=== PATIENT | male | born 1945 | race Caucasian/White ===

== ENCOUNTER 2016-12-07 14:19 | Observation (INO) | payer MEDICARE, OTHER ==
[2016-12-07] MEDS ORDERED: Aspirin Low Dose CHEW TAB* 81 MG PO ONE (17:07)
[2016-12-07 17:35] LABS: Hematocrit 36 % (42-52); Hemoglobin 12.4 g/dl (14.0-18.0); Mean Corpuscular HGB Conc 35 g/dl (31-36); Mean Corpuscular Hemoglobin 32 pg (27-31); Mean Corpuscular Volume 91 fL (80-94); Mean Platelet Volume 9 um3 (7.4-10.4); Red Blood Count 3.94 10^6/ul (4.0-5.4); Red Cell Distribution Width 13 % (10.5-15); White Blood Count 11.5 10^3/ul (3.5-10.8)
[2016-12-07 17:50] LABS: Albumin 3.8 g/dL (3.2-5.2); BUN/Creatinine Ratio 14.6 (8-20); Calcium 8.8 mg/dL (8.6-10.3); EGFR African American 48.6 (>60); EGFR Non-African American 37.8 (>60); Globulin 3.2 g/dL (2-4); Potassium 4.4 mmol/L (3.5-5.0); Total Bilirubin 0.3 mg/dL (0.2-1.0)
--- NOTE | 2016-12-07 18:03 | RAD ---
Indication: Chest pain. Comparison: October 19, 2015 Technique: Upright AP 1715 hours Report: No pulmonary infiltrate, focal pulmonary lesion, pleural effusion, pneumothorax. Upper normal heart size accounting for portable AP technique. Unremarkable central pulmonary vasculature. Mildly tortuous thoracic aorta without change. Prosthetic RIGHT glenohumeral joint. IMPRESSION: No evidence for acute intrathoracic disease.
[2016-12-07 18:28] LABS: TSH (Thyroid Stimulating Horm) 3.42 mcIU/mL (0.34-5.60)
[2016-12-07] MEDS ORDERED: Nitroglycerin TAB 0.4 MG* 0.4 MG TAB SL PRN (19:05)
[2016-12-07] MEDS ORDERED: HYDROcodone/ACETAMIN 5-325 MG* 1 TAB PO PRN (19:05)
[2016-12-07] MEDS ORDERED: Dextrose 50% Syringe 50 ML* 25 GM/50 ML SYRINGE IV PUSH PRN (19:09)
--- NOTE | 2016-12-07 19:22 | ADMNOTE ---
Subjective Date of Service: 12/07/16 Interval History: ADMISSION HISTORY AND PHYSICAL EXAM: Ambulatory Orders Medication Instructions Recorded Atorvastatin* [Lipitor*] 10 mg PO BEDTIME 12/17/12 Enalapril TAB* [Vasotec TAB*] 40 mg PO DAILY 02/27/14 Cyanocobalamin TAB* [Vitamin B12 1,000 mcg PO DAILY 10/19/15 TAB*] Fenofibrate(NF) [Tricor(NF)] 145 mg PO BEDTIME 10/19/15 Furosemide TAB* [Lasix TAB*] 20 mg PO DAILY 10/19/15 Gabapentin CAP(*) [Neurontin 300 600 mg PO TID 10/19/15 CAP(*)] HYDROcodone/ACETAMIN 5-325 MG* 1 tab PO Q6H PRN 10/19/15 [[place] 5-325 TAB*] Hydrocortisone 1% CREAM* [Hytone 1 applic TOPICAL BID 10/19/15 Cream 1%*] Insulin Lispro [Humalog] 10 - 25 unit SUBCUT AC MDD 90 units 10/19/15 Insulin Regular (Human) [Humulin R 30 units SUBCUT BID MDD 60 units 10/19/15 U-500 (Concentrated)] amLODIPine TAB* [Norvasc TAB*] 10 mg PO DAILY 10/19/15 Aspirin EC Low Dose* [Ecotrin EC 81 mg PO DAILY 12/07/16 Low Dose 81 MG*] Cholecalciferol [Vitamin D] 1,000 unit PO DAILY 12/07/16 Nitroglycerin TAB 0.4 MG* 0.4 mg SL Q5M PRN 12/07/16 [place]-3 Fatty Acids (Nf) [Fish Oil 1,000 mg PO DAILY 12/07/16 (NF)] Pantoprazole TAB (NF) [Protonix 40 mg PO DAILY 12/07/16 TAB (NF)] Solifenacin(NF) [Vesicare(NF)] 10 mg PO DAILY 12/07/16 Tamsulosin CAP* [Flomax CAP*] 0.4 mg PO DAILY 12/07/16 Triamcinolone 0.1% CREAM (NF) 1 applic TOPICAL BID 12/07/16 [Kenalog 0.1% Cream (NF)] metFORMIN* [Glucophage 1000 MG TAB 1,000 mg PO BID 12/07/16 *] Allergies Allergy/AdvReac Type Severity Reaction Status Date / Time Adhesive Tape Allergy Unknown Blisters Verified 12/07/16 14:21 Latex Allergy Blisters Verified 12/07/16 14:21 Citalopram [From Celexa] AdvReac Severe See Comment Verified 12/07/16 14:21 Azithromycin AdvReac Intermediate Itching Verified 12/07/16 14:21 HPI: The patient developed chest pain at rest yesterday. It was relieved by 1 SL NTG. It burned under his tongue. This was the first time he ever used NTG. He called Dr. Baez's office and the nurse advised him to go to the ED. He decided he would go if he got chest pain again. Today about 1 PM he got chest pain. He did not take a NTG but had his drive him to the ED. The pain gradually subsided. It is still present but at a much lower level. It was midsternal, no associated sx's. Family History: Findings - Many relatives with DM Social History: Findings - Lives with his who is his SDM. 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 Smoke in [employer]. No alcohol abuse. Past Medical History: Findings - DM with neuropathy, [place], SHELBI, GERD, CKD, back pain, HTN, HL. Nita, appy, tonsil, umbilical hernia repair. Review of Systems - Review of Systems Constitutional Symptoms: Negative: Weight Gain, Weight Loss, Weakness, Fatigue, Fever, Night Sweats, Unexplained Falls, Other Dermatology: Positive: Normal HEENT: Positive: Normal Eyes: Positive: Normal Thyroid: Positive: Normal Pulmonary: Positive: Other - sleep apnea. uses CPAP always when sleeping or napping Cardiology: Positive: Chest Pain Gastroenterology: Positive: Normal Genital - Urinary: Positive: Normal Musculoskeletal: Positive: Low Back Pain Endocrinology: Positive: Obesity, Diabetes Mellitus Hematologic/Lymphatic: Negative: Anemia, Easy Brusing, Hx Leukemia, Hx Lymphoma, Use of Anticoagulant, Use of Antiplatelet Drugs, Other Neurology: Positive: Numbness\Paresthesiae Psychiatry: Positive: Normal Allergic/Immunologic: Negative: Hx Anaphylaxis, Hx Angioedema, Hx Environmental, Hx Seasonal, Athsma, Hx HIV, Immunocompromise, Swollen Glands LymphNodes, Other Objective Active Medications: Hydrocodone Bitart/Acetaminophen ([place] 5-325 Tab*) 1 tab PO Q6H PRN PRN Reason: PAIN Amlodipine Besylate (Norvasc Tab*) 10 mg PO DAILY [facility] Aspirin (Aspirin Ec Low Dose*) 81 mg PO DAILY [facility] Atorvastatin Calcium (Lipitor*) 80 mg PO 2100 [facility] Cholecalciferol (Vitamin D Tab*) 1,000 units PO DAILY [facility] Cyanocobalamin (Vitamin B12 Tab*) 1,000 mcg PO DAILY [facility] Dextrose (D50w Syringe 50 Ml*) 12.5 gm IV PUSH .FOR FS < 60 - SS PRN PRN Reason: FS < 60 Enalapril Maleate (Vasotec Tab*) 40 mg PO DAILY [facility] Gabapentin (Neurontin Cap(*)) 600 mg PO TID [facility] Heparin Sodium (Porcine) (Heparin Vial(*)) 5,000 units SUBCUT Q8HR [facility] Hydrocortisone (Hytone Cream 1%*) 1 applic TOPICAL BID [facility] Insulin Glargine (Lantus(*)) 25 units SUBCUT Q24H [facility] Insulin Human Lispro (Humalog*) 0 units SUBCUT ACHS [facility] PRN Reason: Protocol Nitroglycerin (Nitroglycerin Tab 0.4 Mg*) 0.4 mg SL Q5M PRN PRN Reason: PAIN - CHEST Pantoprazole Sodium (Protonix Tab (Nf)) 40 mg PO DAILY [facility] Solifenacin (Vesicare(Nf)) 10 mg PO DAILY [facility] Tamsulosin HCl (Flomax Cap*) 0.4 mg PO DAILY [facility] Triamcinolone Acetonide (Kenalog 0.1% Cream (Nf)) 1 applic TOPICAL BID [facility] Vital Signs 12/07/16 12/07/16 12/07/16 14:22 16:44 16:46 Temperature 98.2 F Pulse Rate 93 80 Respiratory 20 Rate Blood Pressure 107/92 121/58 (mmHg) O2 Sat by Pulse 96 95 Oximetry 12/07/16 12/07/16 12/07/16 17:00 17:09 17:30 Temperature Pulse Rate 80 82 Respiratory Rate Blood Pressure 121/62 126/62 (mmHg) O2 Sat by Pulse 95 95 95 Oximetry 12/07/16 12/07/16 12/07/16 18:00 18:01 18:30 Temperature Pulse Rate 81 84 81 Respiratory 20 20 Rate Blood Pressure 115/85 (mmHg) O2 Sat by Pulse 95 94 94 Oximetry Oxygen Devices in Use Now: Nasal Cannula Appearance: Alert, supine on ED stretcher. In good spirits. Looks comfortable but c/o stretcher making his back worse. Eyes: No Scleral Icterus Ears/Nose/Mouth/Throat: Clear Oropharnyx, Mucous Membranes Moist Neck: NL Appearance and Movements; NL JVP, No Thyroid Enlargement, Masses Respiratory: Symmetrical Chest Expansion and Respiratory Effort, Clear to Auscultation, Clear to Percussion Cardiovascular: NL Sounds; No Murmurs; No JVD, RRR, No Edema, - Abdominal: NL Sounds; No Tenderness; No Distention, No Hepatosplenomegaly, - - massively obese Extremities: No Edema, No Clubbing, Cyanosis, - Skin: No Rash or Ulcers, No Nodules or Sclerosis, - Neurological: Alert and Oriented x 3, NL Sensation Result Diagrams: 12/07/16 17:23 12/07/16 17:23 Assess/Plan/Problems-Billing Assessment: - Patient Problems (1) Chest pain of uncertain etiology Current Visit: No Status: Acute Priority: High Code(s): R07.89 - OTHER CHEST PAIN SNOMED Code(s): 95424132 Comment: Chemical stress test. Second troponin. PRN NTG. Increase atorvastatin to 80 mg daily. Consider BB if discharge dx angina. (2) Sleep apnea Current Visit: No Status: Chronic Priority: Low Code(s): G47.30 - SLEEP APNEA, UNSPECIFIED SNOMED Code(s): 06576113 Comment: to bring in his CPAP. He always uses it while sleeping or napping. 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 Lispro by SS. (4) GERD (gastroesophageal reflux disease) Current Visit: No Status: Chronic Priority: Low Code(s): K21.9 - GASTRO- ESOPHAGEAL REFLUX DISEASE WITHOUT ESOPHAGITIS SNOMED Code(s): 991978920 Comment: Continue PPI. (5) Morbid obesity with body mass index of 40.0-44.9 in adult Current Visit: No Status: Chronic Priority: Low Code(s): E66.01 - MORBID ( SEVERE) OBESITY DUE TO EXCESS CALORIES; Z68.41 - BODY MASS INDEX (BMI) 40.0-44.9 , ADULT SNOMED Code(s): 913928389 Comment: BMI today not yet recorded.
[2016-12-07] MEDS: Insulin GLARGINE(*) 1 UNITS UNIT SUBCUT SCH (22:09)
[2016-12-07] MEDS: Gabapentin CAP(*) 300 MG PO SCH (22:11)
[2016-12-07] MEDS: Atorvastatin* 80 MG TAB PO SCH (22:11)
[2016-12-07] MEDS: Hydrocortisone 1% CREAM* 30 GM TUBE TOPICAL SCH (22:15)
[2016-12-07] MEDS: Heparin VIAL(*) 5000 UNITS/ML VIAL (FIVE THOUSAND) SUBCUT SCH (22:15)
[2016-12-07] MEDS: Triamcinolone 0.025% OINT * 15 GM TUBE TOPICAL SCH (22:15)
[2016-12-07] MEDS: Insulin LISPRO* 1 UNITS UNIT SUBCUT SCH (22:34)
[2016-12-08] MEDS: Heparin VIAL(*) 5000 UNITS/ML VIAL (FIVE THOUSAND) SUBCUT SCH ×3 (05:37→20:39)
[2016-12-08] MEDS ORDERED: Lidocaine 1%* 5 ML VIAL INJ ONE (08:41)
--- NOTE | 2016-12-08 08:42 | PN ---
Subjective - Subjective Reason for Note: Progress Note History: I have reviewed Hamilton Gibbs's presentation with the patient and his and also with Dr. Arjun Brannon's admitting history and physical. He has a 2 day history of 2/10 chest pressure. There is no radiation, diaphoresis, nausea, vomiting, pre-syncope, palpitations, dyspnea. There are no relieving or exacerbating factors. In particular, mylanta didn't relieve this discomfort. He continues to have this symptom today. His states he has been complaining of non specific malaise for 1 - 2 weeks. His glycemic control is not worsened from baseline. Active Problems: Active Problems Chest pain of uncertain etiology (Acute) R07.89 Chemical stress test. Second troponin. PRN NTG. Increase atorvastatin to 80 mg daily. Consider BB if discharge dx angina. Essential (primary) hypertension (Chronic) I10 GERD (gastroesophageal reflux disease) (Chronic) K21.9 Continue PPI. Hyperlipidemia (Chronic) E78.5 Morbid obesity with body mass index of 40.0-44.9 in adult (Chronic) E66.01, Z68.41 BMI today not yet recorded. Sleep apnea (Chronic) G47.30 to bring in his CPAP. He always uses it while sleeping or napping. 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 Lispro by SS. Current Medications: Current Medications Hydrocodone Bitart/Acetaminophen ([place] 5-325 Tab*) 1 tab PO Q6H PRN PRN Reason: PAIN Amlodipine Besylate (Norvasc Tab*) 10 mg PO DAILY [facility] Aspirin (Aspirin Ec Low Dose*) 81 mg PO DAILY [facility] Atorvastatin Calcium (Lipitor*) 80 mg PO 2100 [facility] Last Admin: 12/07/16 22:11 Dose: 80 mg Cholecalciferol (Vitamin D Tab*) 1,000 units PO DAILY [facility] Cyanocobalamin (Vitamin B12 Tab*) 1,000 mcg PO DAILY [facility] Dextrose (D50w Syringe 50 Ml*) 12.5 gm IV PUSH .FOR FS < 60 - SS PRN PRN Reason: FS < 60 Enalapril Maleate (Vasotec Tab*) 40 mg PO DAILY [facility] Gabapentin (Neurontin Cap(*)) 600 mg PO TID [facility] Last Admin: 12/07/16 22:11 Dose: 600 mg Heparin Sodium (Porcine) (Heparin Vial(*)) 5,000 units SUBCUT Q8HR [facility] Last Admin: 12/08/16 05:37 Dose: 5,000 units Hydrocortisone (Hytone Cream 1%*) 1 applic TOPICAL BID [facility] Last Admin: 12/07/16 22:15 Dose: Not Given Insulin Glargine (Lantus(*)) 25 units SUBCUT Q24H [facility] Last Admin: 12/07/16 22:09 Dose: 25 units Insulin Human Lispro (Humalog*) 0 units SUBCUT ACHS [facility] PRN Reason: Protocol Last Admin: 12/07/16 22:34 Dose: 6 units Nitroglycerin (Nitroglycerin Tab 0.4 Mg*) 0.4 mg SL Q5M PRN PRN Reason: PAIN - CHEST Pantoprazole Sodium (Protonix Tab (Nf)) 40 mg PO DAILY@0730 [facility] Solifenacin (Vesicare(Nf)) 10 mg PO DAILY [facility] Tamsulosin HCl (Flomax Cap*) 0.4 mg PO DAILY [facility] Triamcinolone Acetonide (Triamcinolone 0.025% Oint *) 1 applic TOPICAL BID [facility] Last Admin: 12/07/16 22:15 Dose: Not Given - Review of Systems Constitutional Symptoms: Yes: Fatigue, No: Fever, Night Sweats Pulmonary: Negative: Cough, Hemoptysis, Respiratory Distress, Shortness of Breath Cardiology: Positive: Chest Pain, Swelling of Ankles Negative: Shortness of Breath, Palpitations Gastroenterology: Negative: Abdominal Pain, Nausea, Vomiting, Change in Bowel Habits Genital - Urinary: Negative: Dysuria, Hematuria, Polyuria Home Medications: Home Medications Medication Instructions Recorded Confirmed Type Atorvastatin* [Lipitor*] 10 mg PO BEDTIME 12/17/12 12/07/16 History Enalapril TAB* [Vasotec TAB*] 40 mg PO DAILY 02/27/14 12/07/16 History Cyanocobalamin TAB* [Vitamin B12 1,000 mcg PO DAILY 10/19/15 12/07/16 History TAB*] Fenofibrate(NF) [Tricor(NF)] 145 mg PO BEDTIME 10/19/15 12/07/16 History Furosemide TAB* [Lasix TAB*] 20 mg PO DAILY 10/19/15 12/07/16 History Gabapentin CAP(*) [Neurontin 300 600 mg PO TID 10/19/15 12/07/16 History CAP(*)] HYDROcodone/ACETAMIN 5-325 MG* 1 tab PO Q6H PRN 10/19/15 12/07/16 History [[place] 5-325 TAB*] Hydrocortisone 1% CREAM* [Hytone 1 applic TOPICAL BID 10/19/15 12/07/16 History Cream 1%*] Insulin Lispro [Humalog] 10 - 25 unit SUBCUT AC MDD 90 units 10/19/15 12/07/16 History Insulin Regular (Human) [Humulin R 30 units SUBCUT BID MDD 60 units 10/19/1501/13 History U-500 (Concentrated)] amLODIPine TAB* [Norvasc TAB*] 10 mg PO DAILY 10/19/15 12/07/16 History Aspirin EC Low Dose* [Ecotrin EC 81 mg PO DAILY 12/07/16 12/07/16 History Low Dose 81 MG*] Cholecalciferol [Vitamin D] 1,000 unit PO DAILY 12/07/16 12/07/16 History Nitroglycerin TAB 0.4 MG* 0.4 mg SL Q5M PRN 12/07/16 12/07/16 History [place]-3 Fatty Acids (Nf) [Fish Oil 1,000 mg PO DAILY 12/07/16 12/07/16 History (NF)] Pantoprazole TAB (NF) [Protonix 40 mg PO DAILY 12/07/16 12/07/16 History TAB (NF)] Solifenacin(NF) [Vesicare(NF)] 10 mg PO DAILY 12/07/16 12/07/16 History Tamsulosin CAP* [Flomax CAP*] 0.4 mg PO DAILY 12/07/16 12/07/16 History Triamcinolone 0.1% CREAM (NF) 1 applic TOPICAL BID 12/07/16 12/07/16 History [Kenalog 0.1% Cream (NF)] metFORMIN* [Glucophage 1000 MG TAB 1,000 mg PO BID 12/07/16 12/07/16 History *] Allergies: Allergies Allergy/AdvReac Type Severity Reaction Status Date / Time Adhesive Tape Allergy Unknown Blisters Verified 12/07/16 14:21 Latex Allergy Blisters Verified 12/07/16 14:21 Citalopram [From Celexa] AdvReac Severe See Comment Verified 12/07/16 14:21 Azithromycin AdvReac Intermediate Itching Verified 12/07/16 14:21 Objective - Vital Signs Vital Signs: Vital Signs 12/07/16 12/07/16 12/07/16 19:30 21:00 23:41 Temperature 97.7 F 98.1 F Pulse Rate 80 82 86 Respiratory 19 18 20 Rate Blood Pressure 136/55 162/72 151/70 (mmHg) O2 Sat by Pulse 95 98 99 Oximetry 12/08/16 03:31 Temperature 98.1 F Pulse Rate 80 Respiratory 18 Rate Blood Pressure 145/74 (mmHg) O2 Sat by Pulse 96 Oximetry - Intake and Output Intake and Output: Intake & Output 12/05/16 12/06/16 12/07/16 12/08/16 11:59 11:59 11:59 11:59 Intake Total 0 Balance 0 Weight 302 lb 3.2 oz Intake: Oral 0 ADLs: Meal Record Start: 12/07/16 21: 00 Freq: DAILY@0900,1400,1800 Status: Active Created 12/07/16 21:00 System (Rec: 12/07/16 21:00 System [email or web address]) Intake and Output Start: 12/07/16 14: 20 Freq: Status: Active Created 12/07/16 14:20 System (Rec: 12/07/16 14:20 System [id number]) Intake and Output Start: 12/07/16 21: 00 Freq: DAILY@0600,1400,2200 Status: Active Created 12/07/16 21:00 System (Rec: 12/07/16 21:00 System [email or web address]) Document 12/07/16 22:00 [id number] (Rec: 12/07/16 23:22 [id number] [email or web address]) Document 12/08/16 05:31 [id number] (Rec: 12/08/16 05:32 [id number]) - Physical Exam General Physical Exam Comment: Sitting in a chair, warm and well perfused, no acute distress, he is hemodynamically stable General: No Cyanosis, No Anemia, No Jaundice, No Clubbing Eye Exam: bilateral: EOMI Skin: Normal: Rash Endocrine: Yes Central Obesity, No Acromegaly, No Vitiligo, No Flushing, No Acanthosis nigricans, No Clifford Syndrome Lungs and Chest: Yes: Chest Expansion Full, Chest Expansion Symetrica, Percussion Note Resonant, Vessicular Breath Sounds. No: Crackles, Wheezes Heart Rate and Rhythm: Regular JVP: Not Elevated Additional Cardiovascular: Yes: Normal Heart Sounds, Pedal Edema. No: Heart Murmur Abdominal Exam: Yes: Soft, Bowel Sounds Present. No: Distention, Abdominal Mass , Abdominal Tenderness - Extremities Cranial Nerves II-XII Intact: Yes Limbs: Normal Power, Normal Tone - Neuro Orientation: A/O x3 Psychiatric: Normal Speech: Normal Results - Results Lab Results: Laboratory Results - last 24 hr 12/07/16 12/07/16 12/07/16 20:24 22:29 23:47 POC Glucose (mg/dL) 224 H Troponin I 0.00 0.00 12/08/16 07:49 POC Glucose (mg/dL) 193 H Troponin I Radiology Results: Patient Name: HAMILTON GIBBS Medical Record#: [id number] Ordering Physician: Ishaan Mohamud MD Acct.#: [id number] : 1945 Age: 71 Sex: M Location: EMERGENCY DEPARTMENT Exam Date: 12/07/161706 ADM Status: REG ER Order Information: CHEST AP PORTABLE Accession Number: [id number] CPT: 54584 Indication: Chest pain. Comparison: October 19, 2015 Technique: Upright AP 1715 hours Report: No pulmonary infiltrate, focal pulmonary lesion, pleural effusion, pneumothorax. Upper normal heart size accounting for portable AP technique. Unremarkable central pulmonary vasculature. Mildly tortuous thoracic aorta without change. Prosthetic RIGHT glenohumeral joint. IMPRESSION: No evidence for acute intrathoracic disease. <Electronically signed by Ishaan Chinchilla MD in OV> 12/07/16 1800 Dictated By: Ishaan Chinchilla MD Dictated Date/Time: 12/07/16 1800 Transcribed Date/Time: 12/07/16 4673 Copy to: CC:Earle Lutz MD; Ishaan Mohamdu MD Imaging - [facility] Imaging - [facility] Imaging - [facility] [address] [facility] [place], [place] [id number] [place] [id number] [place] [id number] ph [phone]) ph ([phone]) ph ([phone]) 1 of 1 EKG Report: EKG - 12/07/2016 17:11 SR 77 VA 179 QRS95 QRS axis 15 - normal sinus rhythm Telemetry - NSR Assessment - Problem List Assessment: Patient Problems Chest pain of uncertain etiology (Acute) Essential (primary) hypertension (Chronic) GERD (gastroesophageal reflux disease) (Chronic) Hyperlipidemia (Chronic) Morbid obesity with body mass index of 40.0-44.9 in adult (Chronic) Sleep apnea (Chronic) Type II diabetes mellitus with nephropathy (Chronic) Plan: Chest pain of uncertain etiology (Acute) He presents with atypical chest pain that is mild. He has a negative troponin I series making CAD unlikely. His BNP is normal making CHF unlikely. He has a history of GERD that is the best explanation. Since he has multiple risk factors for CAD (obesity, T2D, HTN, Dyslipidemia, sedentary lifestyle), we will stratify his cardiac risk with a 2 day NM chemical stress test and manage him according to the outcome. Here is the report from his 06/09/14 cardiac cath: Cardiac Catheterization Report LEFT VENTRICULOGRAM: The left ventricle was normal in size and systolic function. Estimated ejection fraction 65%. There were no focal wall motion abnormalities. There was no mitral regurgitation. Aortic valve was normal and ascending aorta was mildly dilated at 3.8 cm. CORONARY ARTERIES: 1. Left main. The left main was normal in size. It bifurcated into the LAD and circumflex. There was no evidence of stenosis. 2. Left anterior descending artery. The LAD was normal in size. It gave off 2 diagonal vessels. There was mild calcification of the proximal LAD. There was no significant stenosis in the proximal and mid LAD. The distal LAD had a 40% stenosis. There is no stenosis in the diagonal vessel. 3. Left circumflex artery. Left circumflex artery was normal in size. It gave off 1 large branching obtuse marginal. There was no evidence of stenosis. There was mild calcification of the proximal vessel. 4. Right coronary artery. The RCA was normal in size. It was a dominant vessel, it gave off the PDA. There was no evidence of stenosis. IMPRESSION: 1. Normal LV size and systolic function. 2. Mild calcification of the proximal LAD and left circumflex artery. 3. 40% stenosis to the distal LAD. 4. Mynx closure device to the right femoral artery. RECOMMENDATIONS: The patient will be continued on maximal medical therapy for his risk factor for coronary artery disease. The patient is at mildly increased risk for cardiovascular complication given the proposed shoulder surgery. The patient should proceed with surgery if indicated. (primary) hypertension (Chronic) controlled GERD (gastroesophageal reflux disease) (Chronic) continue current Rx Hyperlipidemia (Chronic) continue current Rx Morbid obesity with body mass index of 40.0-44.9 in adult (Chronic) ongoing work to have him lose weight Sleep apnea (Chronic) ongoing issue Type II diabetes mellitus with nephropathy (Chronic) Continue current Rx I discussed the above with the patient and his Apple Gibbs. He is concerned about venous access - I have asked the IV team to help.
[2016-12-08] MEDS ORDERED: Buffered Lidocaine 0.9% SYRIN* 5 ML/SYR SYRINGE INTRADERM ONE (08:52)
[2016-12-08] MEDS: Insulin LISPRO* 1 UNITS UNIT SUBCUT SCH ×4 (09:16→20:39)
[2016-12-08] MEDS: amLODIPine TAB* 5 MG PO SCH (09:17)
[2016-12-08] MEDS: Cholecalciferol TAB* 1000 UNITS PO SCH (09:17)
[2016-12-08] MEDS: Tamsulosin CAP* 0.4 MG PO SCH (09:17)
[2016-12-08] MEDS: Aspirin EC Low Dose* 81 MG TAB.EC PO SCH (09:17)
[2016-12-08] MEDS: Enalapril TAB* 20 MG PO SCH (09:17)
[2016-12-08] MEDS: Gabapentin CAP(*) 300 MG PO SCH ×3 (09:17→20:38)
[2016-12-08] MEDS: Hydrocortisone 1% CREAM* 30 GM TUBE TOPICAL SCH ×2 (09:18→20:42)
[2016-12-08] MEDS: Cyanocobalamin TAB* 500 MCG PO SCH (09:18)
[2016-12-08] MEDS: Triamcinolone 0.025% OINT * 15 GM TUBE TOPICAL SCH ×2 (09:18→20:42)
[2016-12-08] MEDS: SOLIFENACIN 5 MG PO SCH (09:18)
[2016-12-08] MEDS: CMCS: Pantoprazole TAB (NF) 40 MG TAB PO SCH (09:18)
--- NOTE | 2016-12-08 11:29 | ED ---
Jerson Graff Angela, scribed for Ishaan Mohamud MD on 12/07/16 at 1712 . HPI Chest Pain - HPI Summary HPI Summary: This pt is a 71 y/o male [facility] since yesterday. Pt reports his pain is sternal, non radiating and is described as pressure. He notes the pain feels as "if someone is sitting on his chest." He states feeling numbness and tingling in both arms. Pt denies nausea, vomiting, sweating, feeling of passing out. Pt called his executive chairman of the board yesterday and was advised to take nitro. He took his nitro tablets with relief yesterday so he did not come to the ED. Today, his pain returned at 1200 and his executive chairman of the board told him to come to the ED. PMHx: HTN. Pt denies VT. - History of Current Complaint Chief Complaint: EDChestPainROMI Time Seen by Provider: 12/07/16 17:06 Hx Obtained From: Patient Pain Intensity: 4 - Allergy/Home Medications Allergies/Adverse Reactions: Allergies Allergy/AdvReac Type Severity Reaction Status Date / Time Adhesive Tape Allergy Unknown Blisters Verified 12/07/16 14:21 Latex Allergy Blisters Verified 12/07/16 14:21 Citalopram [From Celexa] AdvReac Severe See Comment Verified 12/07/16 14:21 Azithromycin AdvReac Intermediate Itching Verified 12/07/16 14:21 Home Medications: Home Medications Aspirin EC Low Dose* [Ecotrin EC Low Dose 81 MG*] 81 mg PO DAILY 12/07/16 [ History Confirmed 12/07/16] Cholecalciferol [Vitamin D] 1,000 unit PO DAILY 12/07/16 [History Confirmed 01/13] Nitroglycerin TAB 0.4 MG* 0.4 mg SL Q5M PRN 12/07/16 [History Confirmed 12/07/16 ] [place]-3 Fatty Acids (Nf) [Fish Oil (NF)] 1,000 mg PO DAILY 12/07/16 [History Confirmed 12/07/16] Pantoprazole TAB (NF) [Protonix TAB (NF)] 40 mg PO DAILY 12/07/16 [History Confirmed 12/07/16] Solifenacin(NF) [Vesicare(NF)] 10 mg PO DAILY 12/07/16 [History Confirmed ] Tamsulosin CAP* [Flomax CAP*] 0.4 mg PO DAILY 12/07/16 [History Confirmed ] Triamcinolone 0.1% CREAM (NF) [Kenalog 0.1% Cream (NF)] 1 applic TOPICAL BID 01/13 [History Confirmed 12/07/16] metFORMIN* [Glucophage 1000 MG TAB *] 1,000 mg PO BID 12/07/16 [History Confirmed 12/07/16] PMH/Surg Hx/FS Hx/Imm Hx Endocrine/Hematology History: Reports: Hx Anticoagulant Therapy - low dose ASA 81mg, Hx Diabetes Denies: Hx Anemia Cardiovascular History: Reports: Hx Angina, Hx Hypercholesterolemia, Hx Hypertension Respiratory History: Reports: Hx Sleep Apnea GI History: Reports: Hx Gastroesophageal Reflux Disease - omeprazole, Other GI Disorders - hx umbilical hernia repair Denies: Hx Jaundice History: Reports: Other Problems/Disorders - bladder lesion --removed Musculoskeletal History: Reports: Hx Arthritis, Hx Back Problems, Other Musculoskeletal History - obesity Neurological History: Reports: Hx Dementia, Hx Nerve Disease - diabetic neuropathy Psychiatric History: Reports: Hx Depression - Surgical History Surgery Procedure, Year, and Place: [facility] medial meniscus tear, [facility]-umbilical hernia repair, 09/28 [facility] (left) ACL tear, 12/30 [facility]-bladder lesion & TURP, 03/06 [facility]- bilateral cataracts, 05/04 [facility]-cholecystectomy,. appendectomy, tonsils, 05/05 [facility]-hernia repair, bladder (benign) Hx Anesthesia Reactions: No - Immunization History Date of Tetanus Vaccine: up to date Date of Influenza Vaccine: 2014 Infectious Disease History: No Infectious Disease History: Denies: Traveled Outside the [place] in Last 30 Days - Family History Known Family History: Positive: Diabetes, Renal Disease - Social History Alcohol Use: Rare Hx Substance Use: No Substance Use Type: Reports: None Hx Tobacco Use: No Smoking Status (MU): Never Smoked Tobacco Review of Systems Negative: Fever, Chills, Skin Diaphoresis Eyes: Negative ENT: Negative Positive: Other - chest pressure Negative: Shortness Of Breath Negative: Vomiting, Nausea Genitourinary: Negative Positive: Paresthesia - in both arms, Numbness - in both arms. Negative: Syncope All Other Systems Reviewed And Are Negative: Yes Physical Exam - Summary Physical Exam Summary: VITAL SIGNS: Reviewed. GENERAL: Patient is a well-developed and obese male who is lying comfortable in the stretcher. Patient is not in any acute respiratory distress. HEAD AND FACE: No signs of trauma. No ecchymosis, hematomas or skull depressions. No sinus tenderness. EYES: PERRLA, EOMI x 2, No injected conjunctiva, no nystagmus. EARS: Hearing grossly intact. Ear canals and tympanic membranes are within normal limits. MOUTH: Oropharynx within normal limits. NECK: Supple, trachea is midline, no adenopathy, no JVD, no carotid bruit, no c- spine tenderness, neck with full ROM. CHEST: Symmetric, no tenderness at palpation. Pt has some chest pressure. LUNGS: Clear to auscultation bilaterally. No wheezing or crackles. CVS: Regular rate and rhythm, S1 and S2 present, no murmurs or gallops appreciated. ABDOMEN: Soft, obese, and non-tender. No signs of distention. No rebound no guarding, and no masses palpated. Bowel sounds are normal. EXTREMITIES: FROM in all major joints, no edema, no cyanosis or clubbing. NEURO: Alert and oriented x 3. No acute neurological deficits. Speech is normal and follows commands. SKIN: Dry and warm Triage Information Reviewed: Yes Vital Signs On Initial Exam: Initial Vitals Temp Pulse Resp BP Pulse Ox 98.2 F 93 20 107/92 96 12/07/16 14:22 12/07/16 14:22 12/07/16 14:22 12/07/16 14:22 12/07/16 14:22 Vital Signs Reviewed: Yes - [place] Coma Scale Coma Scale Total: 15 Diagnostics - Vital Signs Vital Signs Temp Pulse Resp BP Pulse Ox 12/07/16 17:09 95 12/07/16 17:00 80 121/62 95 12/07/16 16:46 80 95 12/07/16 16:44 121/58 12/07/16 14:22 98.2 F 93 20 107/92 96 - Laboratory Lab Results: Lab Results 12/07/16 12/07/16 12/07/16 Range/Units 17:23 17:23 17:23 WBC 11.5 H (3.5-10.8) 10^3/ul RBC 3.94 L (4.0-5.4) 10^6/ul Hgb 12.4 L (14.0-18.0) g/dl Hct 36 L (42-52) % MCV 91 (80-94) fL MCH 32 H (27-31) pg MCHC 35 (31-36) g/dl RDW 13 (10.5-15) % Plt Count 224 (150-450) 10^3/ul MPV 9 (7.4-10.4) um3 Neut % (Auto) 71.4 (38-83) % Lymph % (Auto) 20.0 L (25-47) % Door % (Auto) 6.6 (1-9) % Eos % (Auto) 1.3 (0-6) % Baso % (Auto) 0.7 (0-2) % Absolute Neuts (auto) 8.2 H (1.5-7.7) 10^3/ul Absolute Lymphs (auto) 2.3 (1.0-4.8) 10^3/ul Absolute Monos (auto) 0.8 (0-0.8) 10^3/ul Absolute Eos (auto) 0.1 (0-0.6) 10^3/ul Absolute Basos (auto) 0.1 (0-0.2) 10^3/ul Absolute Nucleated RBC 0 10^3/ul Nucleated RBC % 0 Sodium 134 (133-145) mmol/L Potassium 4.4 (3.5-5.0) mmol/L Chloride 102 (101-111) mmol/L Carbon Dioxide 25 (22-32) mmol/L Anion Gap 7 (2-11) mmol/L BUN 26 H (6-24) mg/dL Creatinine 1.78 H (0.67-1.17) mg/dL Est GFR ( Amer) 48.6 (>60) Est GFR (Non-Af Amer) 37.8 (>60) BUN/Creatinine Ratio 14.6 (8-20) Glucose 116 H (70-100) mg/dL Calcium 8.8 (8.6-10.3) mg/dL Magnesium 1.0 L (1.9-2.7) mg/dL Total Bilirubin 0.30 (0.2-1.0) mg/dL AST 19 (13-39) U/L ALT 22 (7-52) U/L Alkaline Phosphatase 37 (34-104) U/L Total Creatine Kinase 214 (10-223) U/L CK-MB (CK-2) 3.9 (0.6-6.3) ng/mL Troponin I 0.00 (<0.04) ng/mL B-Natriuretic Peptide 11 ( - 100) pg/mL Total Protein 7.0 (6.4-8.9) g/dL Albumin 3.8 (3.2-5.2) g/dL Globulin 3.2 (2-4) g/dL Albumin/Globulin Ratio 1.2 (1-3) TSH 3.42 (0.34-5.60) mcIU/mL Result Diagrams: 12/07/16 17:23 12/07/16 17:23 Lab Statement: Any lab studies that have been ordered have been reviewed, and results considered in the medical decision making process. - Radiology Chest XR Xray Interpretation: No Acute Changes - IMPRESSION: No evidence for acute intrathoracic disease. ED physician has reviewed this radiology report and agrees. Radiology Interpretation Completed By: Radiologist - EKG 1425 Cardiac Rate: NL - 87 bpm EKG Rhythm: Sinus Rhythm EKG Interpretation: No ST elevation. Normal axis Chest Pain Course/Dx - Course Assessment/Plan: This pt is a 71 y/o male presenting to [facility] c/o chest pain since yesterday. Pt reports his pain is sternal, non radiating and is described as pressure. He notes the pain feels as "if someone is sitting on his chest." He states feeling numbness and tingling in both arms. Pt denies nausea, vomiting , sweating, feeling of passing out. Pt called his executive chairman of the board yesterday and was advised to take nitro. He took his nitro tablets with relief yesterday so he did not come to the ED. Today, his pain returned at 1200 and his executive chairman of the board told him to come to the ED. PMHx: HTN. Pt denies VT. Test results show WBC of 11.5, slight anemia, chronic renal insufficiency. Troponin is 0.00. Chest XR is negative for acute intrathoracic disease. In the ED course , the pt is feeling more comfortable and his chest pain has resolved. Due to his comorbidities I contacted Dr. Brannon who has accepted the pt for admission to rule out acute coronary syndrome. - Chest Pain Differential Diagnosis/HQI/PQRI: Acute VT, ACS, Angina, CHF, Chest Wall, GI Disease, Lower Respiratory Infection - Diagnoses Provider Diagnoses: chest pain, rule out ACS - Provider Notifications Discussed Care Of Patient With: Kadeem Brannon Time Discussed With Above Provider: 18:39 Instructed by Provider To: Other - I discussed the pt's case with Dr. Brannon, who has accepted the pt for admission. Discharge - Discharge Plan Condition: Stable Disposition: ADMITTED TO [facility] documentation as recorded by the Jerson rodrigues Angela accurately reflects the service I personally performed and the decisions made by Cade dial Walter, MD.
[2016-12-08] MEDS ORDERED: Regadenoson* 0.4 MG/5 ML SYRINGE ONE (12:13)
[2016-12-08] MEDS: Atorvastatin* 80 MG TAB PO SCH (20:38)
[2016-12-08] MEDS: Insulin GLARGINE(*) 1 UNITS UNIT SUBCUT SCH (20:39)
[2016-12-09] MEDS: Heparin VIAL(*) 5000 UNITS/ML VIAL (FIVE THOUSAND) SUBCUT SCH (05:38)
[2016-12-09 07:47] VITALS: BP 139/60
--- NOTE | 2016-12-09 08:04 | PN ---
Subjective - Subjective Reason for Note: Discharge Note History: Contingent discharge summary He completed the second part of the stress test and walked back up to his room. He has had intermittent chest symptoms, but none overnight. He denies diaphoresis, nausea, vomiting, dyspnea, palpitations, light-headedness, radiation of pain. He has hyperglycemia Active Problems: Active Problems Chest pain of uncertain etiology (Acute) R07.89 Chemical stress test. Second troponin. PRN NTG. Increase atorvastatin to 80 mg daily. Consider BB if discharge dx angina. Essential (primary) hypertension (Chronic) I10 GERD (gastroesophageal reflux disease) (Chronic) K21.9 Continue PPI. Hyperlipidemia (Chronic) E78.5 Morbid obesity with body mass index of 40.0-44.9 in adult (Chronic) E66.01, Z68.41 BMI today not yet recorded. Sleep apnea (Chronic) G47.30 to bring in his CPAP. He always uses it while sleeping or napping. 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 Lispro by SS. Current Medications: Current Medications Hydrocodone Bitart/Acetaminophen ([place] 5-325 Tab*) 1 tab PO Q6H PRN PRN Reason: PAIN Amlodipine Besylate (Norvasc Tab*) 10 mg PO DAILY [facility] Last Admin: 12/08/16 09:17 Dose: 10 mg Aspirin (Aspirin Ec Low Dose*) 81 mg PO DAILY [facility] Last Admin: 12/08/16 09:17 Dose: 81 mg Atorvastatin Calcium (Lipitor*) 80 mg PO 2100 [facility] Last Admin: 12/08/16 20:38 Dose: 80 mg Cholecalciferol (Vitamin D Tab*) 1,000 units PO DAILY [facility] Last Admin: 12/08/16 09:17 Dose: 1,000 units Cyanocobalamin (Vitamin B12 Tab*) 1,000 mcg PO DAILY [facility] Last Admin: 12/08/16 09:18 Dose: 1,000 mcg Dextrose (D50w Syringe 50 Ml*) 12.5 gm IV PUSH .FOR FS < 60 - SS PRN PRN Reason: FS < 60 Enalapril Maleate (Vasotec Tab*) 40 mg PO DAILY [facility] Last Admin: 12/08/16 09:17 Dose: 40 mg Gabapentin (Neurontin Cap(*)) 600 mg PO TID [facility] Last Admin: 12/08/16 20:38 Dose: 600 mg Heparin Sodium (Porcine) (Heparin Vial(*)) 5,000 units SUBCUT Q8HR [facility] Last Admin: 12/09/16 05:38 Dose: 5,000 units Hydrocortisone (Hytone Cream 1%*) 1 applic TOPICAL BID [facility] Last Admin: 12/08/16 20:42 Dose: Not Given Insulin Glargine (Lantus(*)) 25 units SUBCUT Q24H [facility] Last Admin: 12/08/16 20:39 Dose: 25 units Insulin Human Lispro (Humalog*) 0 units SUBCUT ACHS [facility] PRN Reason: Protocol Last Admin: 12/08/16 20:39 Dose: 6 units Nitroglycerin (Nitroglycerin Tab 0.4 Mg*) 0.4 mg SL Q5M PRN PRN Reason: PAIN - CHEST Pantoprazole Sodium (Protonix Tab (Nf)) 40 mg PO DAILY@0730 [facility] Last Admin: 12/08/16 09:18 Dose: 40 mg Solifenacin (Vesicare(Nf)) 10 mg PO DAILY [facility] Last Admin: 12/08/16 09:18 Dose: Not Given Tamsulosin HCl (Flomax Cap*) 0.4 mg PO DAILY [facility] Last Admin: 12/08/16 09:17 Dose: 0.4 mg Triamcinolone Acetonide (Triamcinolone 0.025% Oint *) 1 applic TOPICAL BID [facility] Last Admin: 12/08/16 20:42 Dose: Not Given Home Medications: Home Medications Medication Instructions Recorded Confirmed Type Atorvastatin* [Lipitor*] 10 mg PO BEDTIME 12/17/12 12/07/16 History Enalapril TAB* [Vasotec TAB*] 40 mg PO DAILY 02/27/14 12/07/16 History Cyanocobalamin TAB* [Vitamin B12 1,000 mcg PO DAILY 10/19/15 12/07/16 History TAB*] Fenofibrate(NF) [Tricor(NF)] 145 mg PO BEDTIME 10/19/15 12/07/16 History Furosemide TAB* [Lasix TAB*] 20 mg PO DAILY 10/19/15 12/07/16 History Gabapentin CAP(*) [Neurontin 300 600 mg PO TID 10/19/15 12/07/16 History CAP(*)] HYDROcodone/ACETAMIN 5-325 MG* 1 tab PO Q6H PRN 10/19/15 12/07/16 History [[place] 5-325 TAB*] Hydrocortisone 1% CREAM* [Hytone 1 applic TOPICAL BID 10/19/15 12/07/16 History Cream 1%*] Insulin Lispro [Humalog] 10 - 25 unit SUBCUT AC MDD 90 units 10/19/15 12/07/16 History Insulin Regular (Human) [Humulin R 30 units SUBCUT BID MDD 60 units 10/19/1501/13 History U-500 (Concentrated)] amLODIPine TAB* [Norvasc TAB*] 10 mg PO DAILY 10/19/15 12/07/16 History Aspirin EC Low Dose* [Ecotrin EC 81 mg PO DAILY 12/07/16 12/07/16 History Low Dose 81 MG*] Cholecalciferol [Vitamin D] 1,000 unit PO DAILY 12/07/16 12/07/16 History Nitroglycerin TAB 0.4 MG* 0.4 mg SL Q5M PRN 12/07/16 12/07/16 History [place]-3 Fatty Acids (Nf) [Fish Oil 1,000 mg PO DAILY 12/07/16 12/07/16 History (NF)] Pantoprazole TAB (NF) [Protonix 40 mg PO DAILY 12/07/16 12/07/16 History TAB (NF)] Solifenacin(NF) [Vesicare(NF)] 10 mg PO DAILY 12/07/16 12/07/16 History Tamsulosin CAP* [Flomax CAP*] 0.4 mg PO DAILY 12/07/16 12/07/16 History Triamcinolone 0.1% CREAM (NF) 1 applic TOPICAL BID 12/07/16 12/07/16 History [Kenalog 0.1% Cream (NF)] metFORMIN* [Glucophage 1000 MG TAB 1,000 mg PO BID 12/07/16 12/07/16 History *] Allergies: Allergies Allergy/AdvReac Type Severity Reaction Status Date / Time Adhesive Tape Allergy Unknown Blisters Verified 12/07/16 14:21 Latex Allergy Blisters Verified 12/07/16 14:21 Citalopram [From Celexa] AdvReac Severe See Comment Verified 12/07/16 14:21 Azithromycin AdvReac Intermediate Itching Verified 12/07/16 14:21 Objective - Vital Signs Vital Signs: Vital Signs 12/08/16 12/08/16 12/08/16 09:17 11:17 13:53 Temperature Pulse Rate Respiratory 20 18 20 Rate Blood Pressure (mmHg) O2 Sat by Pulse Oximetry 12/08/16 12/08/16 12/08/16 15:34 15:53 20:00 Temperature 98.3 F Pulse Rate 85 Respiratory 14 18 20 Rate Blood Pressure 114/57 (mmHg) O2 Sat by Pulse 95 Oximetry 12/08/16 12/08/16 12/09/16 20:38 23:25 00:38 Temperature 98.1 F Pulse Rate 75 Respiratory 18 20 18 Rate Blood Pressure 114/55 (mmHg) O2 Sat by Pulse 96 Oximetry 12/09/16 12/09/16 03:53 07:19 Temperature 98.3 F 97.9 F Pulse Rate 79 79 Respiratory 20 18 Rate Blood Pressure 122/56 139/60 (mmHg) O2 Sat by Pulse 97 96 Oximetry - Intake and Output Intake and Output: Intake & Output 12/06/16 12/07/16 12/08/16 12/09/16 11:59 11:59 11:59 11:59 Intake Total 0 1910 Balance 0 1910 Weight 302 lb 3.2 oz Intake: Oral 0 1910 Other: # Bowel Movements 0 # Voids 0 ADLs: Meal Record Start: 12/07/16 21: 00 Freq: DAILY@0900,1400,1800 Status: Active Created 12/07/16 21:00 System (Rec: 12/07/16 21:00 System [id number]) Document 12/08/16 09:00 [id number] (Rec: 12/08/16 09:32 [id number] TELE-C10) Document 12/08/16 14:00 [id number] (Rec: 12/08/16 15:17 [id number] TELE-C10) Document 12/08/16 18:00 [id number] (Rec: 12/08/16 20:18 [id number] TELE-C10) Intake and Output Start: 12/07/16 14: 20 Freq: Status: Active Created 12/07/16 14:20 System (Rec: 12/07/16 14:20 System [id number]) Intake and Output Start: 12/07/16 21: 00 Freq: DAILY@0600,1400,2200 Status: Active Created 12/07/16 21:00 System (Rec: 12/07/16 21:00 System TELE-C01) Document 12/07/16 22:00 [id number] (Rec: 12/07/16 23:22 [id number] TELE-C01) Document 12/08/16 05:31 [id number] (Rec: 12/08/16 05:32 [id number] MED-L02) Document 12/08/16 14:00 [id number] (Rec: 12/08/16 15:17 [id number] TELE-C10) Document 12/08/16 21:54 [id number] (Rec: 12/08/16 21:56 [id number] TELE-C10) Document 12/08/16 22:12 [id number] (Rec: 12/08/16 22:12 [id number] TELE-C10) Document 12/09/16 05:53 [id number] (Rec: 12/09/16 05:54 [id number] TELE-C34) - Physical Exam General: No Cyanosis, No Anemia, No Jaundice, No Clubbing Lungs and Chest: Yes: Chest Expansion Full, Chest Expansion Symetrica, Percussion Note Resonant, Vessicular Breath Sounds. No: Crackles, Wheezes Heart Rate and Rhythm: Regular JVP: Not Elevated Additional Cardiovascular: Yes: Normal Heart Sounds, Pedal Edema. No: Heart Murmur Abdominal Exam: Yes: Soft, Bowel Sounds Present. 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 If this is low risk, I will discharge him. 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 At home he takes U500R insulin 150 units twice daily, here he is taking 25 units of lantus daily - he has severe insulin resistance. I will up the dose of lantus I explained the above to the patient.
--- NOTE | 2016-12-09 08:30 | RAD ---
Edited for charges. INDICATION: Chest pain. Patient with multiple cardiac risk factors COMPARISON: Chest x-ray December 07, 2016 as well as similar scintigraphic examination February 28, 2014 TECHNIQUE: SPECT imaging was performed. Stress images only were acquired following the intravenous administration of 25.93 millicuries of technetium 99m tetrofosmin. The patient received intravenous Lexiscan prior to the stress image acquisition. FINDINGS: There are no defects on the stress-induced images. The cardiac chamber size is normal. There are no wall motion abnormalities. The ejection fraction is calculated at 83% during stress. IMPRESSION: No scintigraphic evidence of ischemia or infarction. ASSESSMENT: Low risk on this stress only scintigraphic examination. MTDD
--- NOTE | 2016-12-09 08:57 | PN ---
Progress Note - Progress Note Date of Service: 12/09/16 Note: Patient Name: RIAZ GIBBS Medical Record#: [id number] Ordering Physician: Kadeem Brannon MD Acct.#: [id number] : 1945 Age: 71 Sex: M Location: [address] [place] [address] MEDICAL/TELEMETRY Exam Date: 12/09/16 ADM Status: ADM Maribeth Order Information: NM MYOCARDIAL MULTI RESTING Accession Number: [id number] CPT: 96410 INDICATION: Chest pain. Patient with multiple cardiac risk factors COMPARISON: Chest x-ray December 07, 2016 as well as similar scintigraphic examination February 28, 2014 TECHNIQUE: SPECT imaging was performed. Stress images only were acquired following the intravenous administration of 25.93 millicuries of technetium 99m tetrofosmin. The patient received intravenous Lexiscan prior to the stress image acquisition. FINDINGS: There are no defects on the stress-induced images. The cardiac chamber size is normal. There are no wall motion abnormalities. The ejection fraction is calculated at 83% during stress. IMPRESSION: No scintigraphic evidence of ischemia or infarction. ASSESSMENT: Low risk on this stress only scintigraphic examination. <Electronically signed by Calos Dee MD in [place]> 12/09/16826 Dictated By: Calos Dee MD Dictated Date/Time: 12/09/16826 Transcribed Date/Time: 12/09/16813 Copy to: CC:Earle Lutz MD; Kadeem Brannon MD Imaging - [facility] Imaging - [facility] Imaging - [facility] [address] [address] ph [phone]) ph [phone]) ph ([phone]) Confirmation of discharge Atyical chest pain - this is not cardiac. I have discharged him. He will return to my office to determine if we need a further search for causes/ treatment of this pain.
[2016-12-09] MEDS: SOLIFENACIN 5 MG PO SCH (09:00)
[2016-12-09] MEDS ORDERED: Insulin GLARGINE(*) 1 UNITS UNIT SUBCUT SCH (09:00)
[2016-12-09] MEDS: Gabapentin CAP(*) 300 MG PO SCH (09:03)
[2016-12-09] MEDS: Tamsulosin CAP* 0.4 MG PO SCH (09:04)
[2016-12-09] MEDS: Cyanocobalamin TAB* 500 MCG PO SCH (09:04)
[2016-12-09] MEDS: Insulin LISPRO* 1 UNITS UNIT SUBCUT SCH (09:04)
[2016-12-09] MEDS: amLODIPine TAB* 5 MG PO SCH (09:04)
[2016-12-09] MEDS: Enalapril TAB* 20 MG PO SCH (09:04)
[2016-12-09] MEDS: Aspirin EC Low Dose* 81 MG TAB.EC PO SCH (09:04)
[2016-12-09] MEDS: Cholecalciferol TAB* 1000 UNITS PO SCH (09:04)
[2016-12-09] MEDS: CMCS: Pantoprazole TAB (NF) 40 MG TAB PO SCH (09:04)
[2016-12-09] MEDS: Hydrocortisone 1% CREAM* 30 GM TUBE TOPICAL SCH (09:09)
[2016-12-09] MEDS: Triamcinolone 0.025% OINT * 15 GM TUBE TOPICAL SCH (09:09)
== END 2016-12-09 10:00 | disposition home or self-care (01) ==
LOC: ED 14:19 → MEDTELE 19:05
PROVIDERS: ADMIT Internal Medicine; ATTEND Internal Medicine
DX: R07.89 Other chest pain (principal); E11.21 Type 2 diabetes mellitus with diabetic nephropathy; Z79.4 Long term (current) use of insulin; Z79.84 Long term (current) use of oral hypoglycemic drugs; G47.33 Obstructive sleep apnea (adult) (pediatric); I49.3 Ventricular premature depolarization; Z79.899 Other long term (current) drug therapy; K21.9 Gastro-esophageal reflux disease without esophagitis; E66.01 Morbid (severe) obesity due to excess calories; Z68.41 Body mass index [BMI] 40.0-44.9, adult
CPT/HCPCS: 36415; 71010; 78452; 80053; 82550; 82553; 83735; 83880; 84443; 84484; 85025; 93005; 93017; 99283; A9270-GY; A9502; G0378; J1644; J2785

== ENCOUNTER 2017-05-06 16:28 | Emergency (ER) | payer MEDICARE, OTHER ==
[2017-05-06] MEDS ORDERED: Al Hydrox/Mg Hydrox/Simet LIQ* 30 ML UDC PO ONE (17:51)
[2017-05-06] MEDS ORDERED: NS 0.9% 1000 ML* 1,000 ML IV ONE ×2 (17:51→20:41)
[2017-05-06] MEDS ORDERED: Famotidine IV* 10 MG/ML 2 ML (20 mg) IV ONE (17:51)
[2017-05-06] MEDS ORDERED: Lidocaine 2% VISCOUS* 15 ML UDC PO ONE (17:51)
[2017-05-06] MEDS ORDERED: Lidocaine 2.5%/Prilocain 2.5%* 5 GM TUBE TOPICAL ONE (17:53)
[2017-05-06] MEDS ORDERED: Lidocaine 2.5%/Prilocain 2.5%* 5 GM TUBE ONE (17:54)
--- OUTSIDE RECORDS SUMMARY | 2017-05-06 17:58 | XMS REPORT ---
:1945 External Reference #:[id number] [facility] Address [address] [address] Phone [phone] Care Team Providers Name Role Phone Kristy Pereira MD Care Team Information Medical Librarian Unavailable Earle Lutz MD Primary Care Physician Unavailable Payers Type Date Identification Numbers Payment Provider Subscriber Medicare Primary Policy Number: [id number] Medicare Hamilton Neri PayID: [id number] [address] [place] [address] Medigap Part B Policy Number: [id number] [employer] Hamilton Neri Group Number: [id number] [address] PayID: [id number] [place] [address] Workers Effective: Policy Number: Louher Hamilton Sexton Compensation 2007 [id number] Carlyn Neri Expires: 2012 PayID: [id number] [address] [address] Onset: 2007 [place] [address] Problems Date Description Provider Status Onset: 01/28/2014 Obstructive sleep apnea of Rosa Cordova DNP, RN, Active adult [facility]- Note: Severe 80.7/hour, chris oxygen 69% Onset: 01/15/2015 Hip pain Eulalia Padilla M.D. Active Onset: 02/15/2016 Nasal congestion Rosa Cordova DNP, RN, [employer] Active Family History Date Family Member(s) Problem(s) Comments Father bone cancer, Mother Kidney Disease Mother Social History Type Date Description Comments Marital Status Lives With Occupation Retired [employer] Cigarette Use as a kid. not long ETOH Use Drinks Alcoholic Beverages Rarely Smoking Patient is a former smoker smoked during teen yr, smoke for few months only Recreational Drug Use Denies Drug Use Daily Caffeine Does Not Consume Caffeine 1 cup of coffee rarely Exercise Type/Frequency Does not exercise Allergies, Adverse Reactions, Alerts Date Description Reaction Status Severity Comments 12/23/2013 Adhesive Tape blisters active per [facility] discharge note 10/22/13 12/23/2013 Azithromycin itching,red, blotchy active per [facility] discharge note skin 12/23/2013 Citalopram active per [facility] discharge note Medications Medication Date Status Form Strength Qnty SIG Indications Ordering Provider Afrin Nasal 02/14/ Active Solution 0.05% OTC Rosa Senatobia 2015 advised Art, to reduce DNP, RN, dosing to [employer] hs and prn, slow taper Humulin 70/30 // Active Suspension (70-30)10 use as Unknown 0000 0Unit/ML directed (30 units Am and PM) Humalog / Active Solution 100Unit/M 1vial sliding Unknown 0000 L scale Amitriptyline / Active Tablets 10mg 60tab 1 tablet Unknown HCL 0000 s po qhs (pt not taking) Aspirin / Active Tablets 81mg 90tab 1 by Unknown 0000 s mouth every day Atorvastatin / Active Tablets 10mg 30tab 1 by Unknown Calcium 0000 s mouth every day Enalapril / Active 20mg 1 tablet Unknown Maleate 0000 po twice daily Hydrocodone-Acet / Active 1 tablet Unknown aminophen 0000 po q6 hrs prn [place]-3 Fish Oil / Active 2000mg 1 tablet Unknown 0000 po bid Vesicare / Active Tablets 10mg 30tab 1 by Unknown 0000 s mouth every day Saline Nasal / Active Solution 0.65% 45ml use 2-6 Unknown Senatobia 0000 sprays in each nostril every 2 hours as needed Nitrostat / Active Tablets Sub 0.4mg one sl Unknown 0000 q5min up to 3 doses as needed Fenofibrate // Active Tablets 145mg 1 by Unknown 0000 mouth every day Pantoprazole 00/ Active Tablets DR 40mg 1 by Unknown Sodium 0000 mouth every day Amlodipine / Active Tablets 10mg 1 by Unknown Besylate 0000 mouth every day Tamsulosin HCL / Active Capsules 0.4mg 1 by Unknown 0000 mouth every day Multiple Vitamin 00/ Active Tablets 1 by Unknown 0000 mouth every day Stimulen / Active Powder topical Unknown 0000 to affected area Percocet 11/18/ Hx Tablets 5-325mg 50tab 1 PO Q4H Morro RobinAnat 2007 - s prn Ramosruk, 06/02/ M.DAnat 2014 Metformin HCL / Hx 1000mg 2 tablet Unknown 0000 - po b.i.d 2014 Calcium / Hx 1 tablet Unknown Carbonate-Magnes 0000 - po twice ium Oxide daily 2014 Cyanocobalamin / Hx 1000mcg Unknown 0000 - po daily 2014 Diltiazem HCL ER / Hx 240mg 1 cap po Unknown 0000 - daily Am 2014 Fenofibrate / Hx 1 tablet Unknown 0000 - po at 06/02/ bedtime 2014 Glucosamine / Hx 1 cap po Unknown Chondroitin 0000 - qam 2014 Metaxalone / Hx Tablets 800mg 30tab 1 tablet Unknown 0000 - s po qhs as 2016 Omeprazole / Hx Capsules DR 20mg 90cap 1 cap po Unknown 0000 - s bid 2014 Vitamin B-12 / Hx Tablets Sub 1000mcg 1 by Unknown 0000 - mouth 05/04/ every day 2018 Puracol Plus Ag / Hx Topical Unknown 0000 - to 05/04/ affected 2016 area Gabapentin / Hx Capsules 300mg Take 2 Unknown 0000 - Capsules 02/14/ By Mouth 2017 3 Times A Day Medications Administered in Office Medication Date Status Form Strength Qnty SIG Indications Ordering Provider Inj, Administered Injection Cresencio Sheppard Regadenoson, 013 Aishwarya Baez 0.1 MG Technetium TC Administered Injection Cresencio Sheppard 99M 013 Aishwarya Baez Tetrofosmin, Per Unit Dose Up To 40 Millicuries Vital Signs Date Vital Result Comment 05/05/2017 Height 69 inches 5'9" Weight 308.00 lb Heart Rate 92 /min BP Systolic Sitting 154 mmHg Rue large cuff BP Diastolic Sitting 70 mmHg Rue large cuff BP Systolic Standing 142 mmHg Rue BP Diastolic Standing 68 mmHg Rue Respiratory Rate 20 /min BMI (Body Mass Index) 45.5 kg/m2 Ejection Fraction No EF 02/22/2010-echo 02/14/2017 Height 69 inches 5'9" Weight 306.38 lb with shoes Heart Rate 82 /min BP Systolic Sitting 142 mmHg Rue large cuff BP Diastolic Sitting 62 mmHg Rue large cuff Respiratory Rate 16 /min O2 % BldC Oximetry 97 % On Ra BMI (Body Mass Index) 45.2 kg/m2 05/13/2016 Height 69 inches 5'9" Weight 310.00 lb Heart Rate 84 /min BP Systolic Sitting 138 mmHg left arm, reg cuff BP Diastolic Sitting 60 mmHg left arm, reg cuff BP Systolic Standing 134 mmHg left arm, reg cuff BP Diastolic Standing 58 mmHg left arm, reg cuff Respiratory Rate 16 /min BMI (Body Mass Index) 45.8 kg/m2 Ejection Fraction 68% 02/28/14 NLM 02/15/2016 Height 69 inches 5'9" Weight 300.00 lb reports Heart Rate 84 /min BP Systolic Sitting 130 mmHg BP Diastolic Sitting 78 mmHg Respiratory Rate 20 /min O2 % BldC Oximetry 92 % BMI (Body Mass Index) 44.3 kg/m2 06/05/2015 Height 69 inches 5'9" Weight 319.00 lb per pt Heart Rate 82 /min reg BP Systolic Sitting 154 mmHg Lue, lg cuff BP Diastolic Sitting 76 mmHg Lue, lg cuff BP Systolic Standing 150 mmHg Lue BP Diastolic Standing 80 mmHg Lue Respiratory Rate 16 /min BMI (Body Mass Index) 47.1 kg/m2 Ejection Fraction 65% As of 06/09/14 cath 01/15/2015 Height 69 inches 5'9" Weight 314.00 lb Heart Rate 88 /min BP Systolic Sitting 138 mmHg BP Diastolic Sitting 50 mmHg Respiratory Rate 16 /min BMI (Body Mass Index) 46.4 kg/m2 07/29/2014 Height 69 inches 5'9" Weight 305.12 lb Heart Rate 83 /min BP Systolic Sitting 146 mmHg BP Diastolic Sitting 74 mmHg Respiratory Rate 20 /min O2 % BldC Oximetry 98 % BMI (Body Mass Index) 45.1 kg/m2 06/17/2014 Height 68 inches 5'8" Weight 290.00 lb Heart Rate 80 /min BP Systolic Sitting 128 mmHg left arm, large cuff BP Diastolic Sitting 60 mmHg left arm, large cuff BP Systolic Standing 92 mmHg left arm, large cuff BP Diastolic Standing 54 mmHg left arm, large cuff Respiratory Rate 16 /min BMI (Body Mass Index) 44.1 kg/m2 06/03/2014 Height 68 inches 5'8" Weight 301.00 lb with shoes Heart Rate 84 /min BP Systolic Sitting 112 mmHg right arm, large cuff BP Diastolic Sitting 64 mmHg right arm, large cuff BP Systolic Standing 116 mmHg right arm, large cuff BP Diastolic Standing 66 mmHg right arm, large cuff Respiratory Rate 16 /min BMI (Body Mass Index) 45.8 kg/m2 04/09/2014 Height 68 inches 5'8" Weight 294.00 lb no shoes Heart Rate 90 /min BP Systolic Sitting 138 mmHg LA, Lg cuff BP Diastolic Sitting 76 mmHg LA, Lg cuff BP Systolic Standing 132 mmHg LA BP Diastolic Standing 76 mmHg LA Respiratory Rate 16 /min BMI (Body Mass Index) 44.7 kg/m2 01/28/2014 Heart Rate 77 /min BP Systolic Sitting 160 mmHg BP Diastolic Sitting 84 mmHg Respiratory Rate 20 /min O2 % BldC Oximetry 97 % Results Test Date Test Result H/L Range Note Pre Cath Panel 06/03/2014 Activated Partial 35.6 seconds 26.0-36.3 Thrombo Time Basic Metabolic Panel 06/03/2014 Sodium 135 mmol/L 133-145 Potassium 4.0 mmol/L 3.5-5.0 Chloride 104 mmol/L 101-111 Co2 Carbon Dioxide 25 mmol/L 22-32 Anion Gap 6 mmol/L 2-11 Glucose 102 mg/dL High 70-100 Blood Urea Nitrogen 12 mg/dL 6-24 Creatinine 1.31 mg/dL High 0.67-1.17 BUN/Creatinine Ratio 9.2 8-20 Calcium 9.2 mg/dL 8.6-10.3 Egfr Non- 54.3 >60 Egfr 69.8 >60 1 CBC Auto Diff 06/03/2014 White Blood Count 7.4 10^3/uL 4.8-10.8 Red Blood Count 4.02 10^6/uL 4.0-5.4 Hemoglobin 12.8 g/dL Low 14.0-18.0 Hematocrit 37 % Low 42-52 Mean Corpuscular Volume 92 fL 80-94 Mean Corpuscular Hemoglobin 32 pg High 27-31 Mean Corpuscular HGB Conc 35 g/dL 31-36 Red Cell Distribution Width 13 % 10.5-15 Platelet Count 221 10^3/uL 150-450 Mean Platelet Volume 9 um3 7.4-10.4 Abs Neutrophils 3.9 10^3/uL 1.5-7.7 Abs Lymphocytes 2.7 10^3/uL 1.0-4.8 Abs Monocytes 0.5 10^3/uL 0-0.8 Abs Eosinophils 0.3 10^3/uL 0-0.6 Abs Basophils 0.1 10^3/uL 0-0.2 Abs Nucleated RBC 0 10^3/uL Granulocyte % 52.3 % 38-83 Lymphocyte % 35.9 % 25-47 Monocyte % 7.4 % 1-9 Eosinophil % 3.4 % 0-6 Basophil % 1.0 % 0-2 Nucleated Red Blood Cells % 0.1 Inr/Protime 06/03/2014 Inr 0.97 0.78-1.07 Laboratory test finding 09/17/2012 Troponin I 0 ng/mL 0-0.06 2 1 Because ethnic data is not always readily available, this report includes an eGFR for both -Americans and non- Americans. The National Kidney Disease Education Program (NKDEP) does not endorse the use of the MDRD equation for patients that are not between the ages of 18 and 70, are , have extremes of body size, muscle mass, or nutritional status, or are non- or non-. According to the National Kidney Foundation, irrespective of diagnosis, the stage of the disease is based on the level of kidney function: Stage Description GFR(mL/min/1.73 m(2)) 1 Kidney damage with normal or decreased GFR 90 2 Kidney damage with mild decrease in GFR 60-89 3 Moderate decrease in GFR 30-59 4 Severe decrease in GFR 15-29 5 Kidney failure <15 (or dialysis) 2 Reference Range and Interpretation: TnI (ng/mL) Interpretation Less Than 0.06 ng/mL Not supportive of diagnosis of MT 0.06 - 0.50 ng/mL Indeterminate: suggest serial studies if clinically indicated. Greater than 0.5 ng/mL Consistent with diagnosis of MT Procedures Date CPT Code Description Status 05/05/2017 56602 EKG Tracing & Interpretation Completed 12/08/2016 17135 Treadmill Interp/Report Only Completed 12/08/2016 56916 Stress Test Supervsn W/Out I/R Completed 05/13/2016 31163 EKG Tracing & Interpretation Completed 06/05/2015 82107 EKG Tracing & Interpretation Completed 06/09/2014 50241 Left Heart Cath. Incl S/I Coronaries, Angio S/I V Gram Completed If Done 04/09/2014 27368 EKG Tracing & Interpretation Completed 02/28/2014 24388 Treadmill Interp/Report Only Completed 02/28/2014 58516 Stress Test Supervsn W/Out I/R Completed 01/09/2013 47172 Polysomnography Sleep Staging 4+ Parameters W/Cpap Completed 12/26/2012 86899 Polysomnography Sleep Staging 4+ Parameters Completed 09/21/2012 79334 Stress Test Completed 09/21/2012 69786 Myocardial Perfusion Imaging Tomographic (Spect) Completed Multiple Studies Encounters Type Date Location Provider CPT E/M Dx Office Visit 05/05/2017 9:45a [facility] Cresencio Baez, 61549 I10 Paola Neff I11.9 Office Visit 02/14/2017 9:15a [facility] Rosa Cordova 86210 G47.33 [facility] CHAITANYA SULLIVAN, KAYLA Office Visit 12/07/2016 10:27a [facility] Kadeem Brannon, 55615 R07.89 [facility] Aishwarya E11.42 Z79.4 I10 Office Visit 05/13/2016 10:00a [facility] Cresencio Baez 48591 I10 M.Valarie I11.9 Office Visit 02/15/2016 8:30a [facility] Rosa Cordova 37391 G47.33 [facility] CHAITANYA SULLIVAN, KAYLA R09.81 E66.01 Z68.41 Office Visit 10/19/2015 9:58a [facility] [place] [address] R07.9 Hospitalists E66.01 Office Visit 06/05/2015 8:15a [facility] B[facility] [address]7811 R94.39 Paola Neff R07.9 I10 I11.9 Office Visit 01/15/2015 1:00p [facility] Eulalia Padilla, 49446 M25.551 Services Of Paola Neff M79.604 Office Visit 07/29/2014 9:30a [facility] Rosa Cordova, 27840 327.23 [facility] CHAITANYA SULLIVAN, KAYLA Office Visit 06/17/2014 1:00p [facility] Cresencio Baez, 63077 794.39 [facility].50 Office Visit 06/03/2014 1:15p [facility] Cresencio Baez, 80883 786.50 [facility].Valarie 250.40 794.39 Office Visit 04/09/2014 9:45a [facility] Cresencio Baez, 27765 786.50 [facility] Aishwarya 250.40 401.9 Office Visit 02/27/2014 3:01p [facility] [place], [address] 786.50 Ass, Hospitalists .Valarie 250.40 272.4 401.9 Office Visit 01/28/2014 11:30a [facility] Rosa Cordova, 42167 327.23 [facility] CHAITANYA SULLIVAN, KAYLA Office Visit 11/21/2007 9:15a Neuro[facility] Services Morro Banegas, 03359 847.2 [facility] Aishwarya Plan of Care Future Appointment(s):02/06/2018 9:00 am - Rosa Cordova DNP, RN, KAYLA at [facility]05/05/2017 - Cresencio Baez M.D.I10 Essential (primary) hypertensionFollow up:1 yearI11.9 Hypertensive heart disease without heart failure
--- NOTE | 2017-05-06 18:37 | RAD ---
HISTORY: Abdominal pain COMPARISONS: None VIEWS: Frontal supine and upright views of the abdomen. FINDINGS: BOWEL: There is a nonobstructive bowel gas pattern. There is a moderate amount of stool within the colon. CALCULI: There are no abnormal calculi. BONES AND SOFT TISSUES: Mild degenerative changes are noted. OTHER FINDINGS: The lung bases are clear. There is no subphrenic gas. IMPRESSION: NONOBSTRUCTIVE BOWEL GAS PATTERN.
--- NOTE | 2017-05-06 18:38 | RAD ---
HISTORY: Abdominal pain COMPARISONS: December 07, 2016 VIEWS: 4: Frontal dual-energy and lateral views of the chest. FINDINGS: CARDIOMEDIASTINAL SILHOUETTE: The cardiomediastinal silhouette is normal. EUGENIA: The eugenia are normal. PLEURA: The costophrenic angles are sharp. No pleural abnormalities are noted. LUNG PARENCHYMA: The lungs are clear. ABDOMEN: The upper abdomen is clear. There is no subphrenic gas. BONES AND SOFT TISSUES: The patient is status post right shoulder arthroplasty OTHER: None. IMPRESSION: NO ACTIVE CARDIOPULMONARY DISEASE.
[2017-05-06 18:44] LABS: ABS Basophils 0 10^3/ul (0-0.2); ABS Eosinophils 0.2 10^3/ul (0-0.6); ABS Lymphocytes 1.7 10^3/ul (1.0-4.8); ABS Monocytes 0.9 10^3/ul (0-0.8); ABS Neutrophils 3.7 10^3/ul (1.5-7.7); ABS Nucleated RBC 0 10^3/ul; Eosinophil % 3.7 % (0-6); Hematocrit 39 % (42-52); Hemoglobin 13.2 g/dl (14.0-18.0); Lymphocyte % 25.7 % (25-47); Mean Corpuscular HGB Conc 34 g/dl (31-36); Mean Corpuscular Hemoglobin 31 pg (27-31); Mean Corpuscular Volume 91 fL (80-94); Mean Platelet Volume 9 um3 (7.4-10.4); Nucleated Red Blood Cells % 0; Platelet Count 229 10^3/ul (150-450); Red Blood Count 4.24 10^6/ul (4.0-5.4); Red Cell Distribution Width 13 % (10.5-15); White Blood Count 6.6 10^3/ul (3.5-10.8)
[2017-05-06 18:51] LABS: Urine Appearance Clear; Urine Blood Negative (Negative); Urine Color Straw; Urine Ketones Negative (Negative); Urine Protein Negative (Negative); Urine Specific Gravity 1.002 (1.010-1.030); Urine Urobilinogen Negative (Negative)
[2017-05-06 18:59] LABS: EGFR Non-African American 52.4 (>60)
[2017-05-06] MEDS ORDERED: NS 0.9% 1000 ML*IV.FLUID BOLUS ONE (20:41)
[2017-05-06] MEDS: Iodixanol* (CONTRAST) 320 MG/ML 100 ML SDV IV ONE (23:15)
[2017-05-07] MEDS: Iodixanol* (CONTRAST) 320 MG/ML 100 ML SDV IV ONE (00:01)
[2017-05-07] MEDS ORDERED: DOXYcycline CAP(*) 100 MG PO ONE (00:10)
[2017-05-07] MEDS ORDERED: Levofloxacin TAB* 500 MG PO ONE (00:10)
--- NOTE | 2017-05-07 00:17 | ED ---
Ji Graff Tiffany, scribed for Fidel Bhakta MD on 05/06/17 at 2045 . Progress - Progress Note Progress Note: Patient is a sign out from Dr. Mohamud at shift change. CT Abd/Pel reveals abd wall cellulitis without abscess, per radiologist. ED physician reviewed report. - EKG/XRAY/CT CT: CT Abd/Pel reveals abd wall cellulitis w/o absces. ED physician review rep Re-Evaluation - Re-Evaluation First Eval Re-Evaluation Time: 20:43 Change: Improved Comment: Patient says he feels somewhat better and is asking for food. Tenderness in LLQ upon physical exam. Requests CT scan to rule out diverticulitis and colitis. Second Eval Re-Evaluation Time: 00:04 Change: Improved Comment: Patient informed of CT Abd/Pel results. Agreeable to discharge. Course/Dx - Course Course Of Treatment: 71 y/o M presents with lower abdominal tenderness upon exam. CT Abd/Pel consistent with subcutaenous edema and cellulitis. Will be treated with PO antibiotics. Patient agreeable to discharge. - Diagnoses Provider Diagnoses: Abdominal wall cellulitis The documentation as recorded by the Ji rodrigues Tiffany accurately reflects the service I personally performed and the decisions made by , Fidel Bhakta MD.
[2017-05-07 01:00] VITALS: BP 158/73
--- NOTE | 2017-05-07 07:46 | RAD ---
CLINICAL HISTORY: Abdominal pain COMPARISON: March 28, 2007 TECHNIQUE: Multiple contiguous axial CT scans were obtained of the abdomen and pelvis after the administration of intravenous contrast. Coronal and sagittal multiplanar reformations are submitted for review. Oral contrast was administered. Delayed images were obtained through the abdomen and pelvis. FINDINGS: LUNG BASES: The lung bases are clear. LIVER: The liver is diffusely low in attenuation compared to the spleen. There are no focal hepatic parenchymal masses. The liver measures 22 cm in long axis. BILE DUCTS: There is no intrahepatic or extrahepatic biliary dilatation. GALLBLADDER: The gallbladder is not visualized. Surgical clips are noted in the gallbladder fossa. PANCREAS: The pancreas is normal, without mass or ductal dilatation. SPLEEN: Normal in size and appearance. UPPER GI TRACT: Evaluation of the gastrointestinal tract is limited by incomplete gastric distention. The upper GI tract is unremarkable. SMALL BOWEL AND MESENTERY: The small bowel is normal in contour, course, and caliber. There is no obstruction or dilatation. COLON: The colon is normal in contour, course, caliber. There is no pericolonic inflammatory change. ADRENALS: Normal bilaterally. KIDNEYS: There is been interval development of rounded high attenuation exophytic lesion measuring 3.1 x 3.8 x 3.7 cm in size, of the lower pole of the right kidney. A similar lesion is noted of the lower pole of left kidney measuring 3.2 x 2.4 x 2.8 cm in size. There is no appreciable hydronephrosis or nephrolithiasis. BLADDER: The bladder is smooth in contour. PELVIC ORGANS: The prostate is diffusely enlarged. The seminal vesicles are symmetric. AORTA: The aorta is normal. IVC: Unremarkable LYMPH NODES: There is no lymphadenopathy by size criteria. ABDOMINAL WALL: There is stranding of the subcutaneous fat of the anterior abdominal wall BONES AND SOFT TISSUES: Degenerative changes are noted of the spine. OTHER: None IMPRESSION: 1. INFLAMMATORY CHANGE OF THE ANTERIOR ABDOMINAL WALL WHICH MAY REFLECT CELLULITIS. 2. HEPATOMEGALY WITH FATTY INFILTRATION OF THE LIVER. 3. THERE IS BEEN INTERVAL DEVELOPMENT OF EXOPHYTIC HIGH ATTENUATION CYSTIC LESIONS OF THE LOWER POLES OF THE KIDNEYS BILATERALLY. THE CT APPEARANCE IS CONSISTENT WITH BOSNIAK TYPE II CYSTS, THOUGH GIVEN THE CHANGE FROM PREVIOUS EXAMINATIONS, RECOMMEND CORRELATION WITH ULTRASOUND OF THE KIDNEYS IN THE NONACUTE SETTING TO EXCLUDE SOLID PARENCHYMAL LESIONS. 4. ENLARGED PROSTATE
--- NOTE | 2017-05-07 16:26 | ED ---
Moon Graff Gabriel, scribed for Ishaan Mohamud MD on 05/06/17 at 1732 . Abdominal Pain/Male - HPI Summary HPI Summary: This patient is a 71 year old M presenting to [facility] accompanied by his with a chief complaint of ABD pain since 05-02-17. The patient rates the pain 4/ 10 in severity. Patient reports burning CP and green diarrhea. Patient denies vomiting. Pt states he cannot eat anything without having diarrhea. - History of Current Complaint Chief Complaint: EDChestPainROMI Stated Complaint: CHEST PAIN,DIARRHEA Time Seen by Provider: 05/06/17 17:07 Hx Obtained From: Patient Onset/Duration: Lasting Days, Still Present Timing: Constant Severity Initially: Moderate Severity Currently: Moderate Pain Intensity: 4 Pain Scale Used: 0-10 Numeric Location: Epigastric Radiates: No Associated Signs And Symptoms: Positive: Chest Pain, Diarrhea. Negative: Vomiting - Allergies/Home Medications Allergies/Adverse Reactions: Allergies Allergy/AdvReac Type Severity Reaction Status Date / Time Adhesive Tape Allergy Unknown Blisters Verified 12/07/16 14:21 azithromycin Allergy Itching Verified 05/06/17 17:12 citalopram [From Celexa] Allergy See Comment Verified 05/06/17 17:12 latex Allergy Blisters Verified 05/06/17 17:12 PMH/Surg Hx/FS Hx/Imm Hx Endocrine/Hematology History: Reports: Hx Anticoagulant Therapy - low dose ASA 81mg, Hx Diabetes Denies: Hx Anemia Cardiovascular History: Reports: Hx Angina, Hx Coronary Artery Disease, Hx Hypercholesterolemia, Hx Hypertension Denies: Hx Valvular Heart Disease Respiratory History: Reports: Hx Sleep Apnea Denies: Hx Asthma GI History: Reports: Hx Gastroesophageal Reflux Disease - omeprazole, Other GI Disorders - hx umbilical hernia repair Denies: Hx Jaundice History: Reports: Other Problems/Disorders - bladder lesion --removed Musculoskeletal History: Reports: Hx Arthritis, Hx Back Problems, Other Musculoskeletal History - obesity Sensory History: Denies: Hx Contacts or Glasses, Hx Hearing Aid Opthamlomology History: Denies: Hx Contacts or Glasses Neurological History: Reports: Hx Dementia, Hx Nerve Disease - diabetic neuropathy Psychiatric History: Reports: Hx Depression - Surgical History Surgery Procedure, Year, and Place: [facility] [place], [facility] [place], 09/28 [facility]- (left) ACL tear, 12/30 [facility]-bladder lesion & TURP, 03/06 [facility]- bilateral cataracts, 05/04 [facility]-cholecystectomy,. appendectomy, tonsils, 05/05 [facility] [place]hernia repair, bladder (benign) Hx Anesthesia Reactions: No - Immunization History Date of Tetanus Vaccine: up to date Date of Influenza Vaccine: 2014 Infectious Disease History: No Infectious Disease History: Denies: Traveled Outside the [place] in Last 30 Days - Family History Known Family History: Positive: Diabetes, Renal Disease - Social History Lives: With Family Alcohol Use: Rare Hx Substance Use: No Substance Use Type: Reports: None Hx Tobacco Use: No Smoking Status (MU): Never Smoked Tobacco Have You Smoked in the Last Year: No Review of Systems Positive: Chest Pain Positive: Abdominal Pain, Diarrhea. Negative: Vomiting All Other Systems Reviewed And Are Negative: Yes Physical Exam - Summary Physical Exam Summary: VITAL SIGNS: Reviewed. GENERAL: Patient is an obese male who is lying comfortable in the stretcher. Patient is not in any acute respiratory distress. HEAD AND FACE: Normocephalic and atraumatic. EYES: PERRLA, EOMI x 2, No injected conjunctiva. EARS: Hearing grossly intact. Ear canals and tympanic membranes are WNL. MOUTH: Oropharynx within normal limits. NECK: Supple, trachea is midline, no adenopathy, no JVD. CHEST: Symmetric, no tenderness at palpation LUNGS: Clear to auscultation bilaterally. No wheezing or crackles. CVS: RRR, S1 and S2 present, no murmurs or gallops appreciated. ABDOMEN: Soft, TTP in lower ABD. No signs of distention. Positive bowel sounds. No rebound no guarding, and no masses palpated. No abdominal bruit or pulsations. EXTREMITIES: FROM in all major joints, no edema, no cyanosis or clubbing. NEURO: Alert and oriented x 3. No acute neurological deficits. Speech is normal. SKIN: Dry and warm Triage Information Reviewed: Yes Vital Signs On Initial Exam: Initial Vitals Temp Pulse Resp BP Pulse Ox 97.7 F 86 20 132/54 98 05/06/17 16:39 05/06/17 16:39 05/06/17 16:39 05/06/17 16:39 05/06/17 16:39 Vital Signs Reviewed: Yes Diagnostics - Vital Signs Vital Signs Temp Pulse Resp BP Pulse Ox 05/06/17 17:10 87 16 97 05/06/17 17:08 150/68 05/06/17 16:39 97.7 F 86 20 132/54 98 - Laboratory Result Diagrams: 05/06/17 18:35 05/06/17 18:35 Lab Statement: Any lab studies that have been ordered have been reviewed, and results considered in the medical decision making process. - Radiology CXR Radiology Interpretation Completed By: Radiologist - no active cardiopulmonary disease ED physician has reviewed this radiology report. ABD Xray Radiology Interpretation Completed By: Radiologist - NONOBSTRUCTIVE BOWEL GAS PATTERN. ED physician has reviewed this radiology report. - EKG 16:44 Cardiac Rate: NL EKG Rhythm: Sinus Rhythm - at 86 BPM EKG Interpretation: No ST elevations Abdominal Pain Fem Course/Dx - Course Assessment/Plan: Patient initially seen at 17:32. I ordered blood work right after I saw the patient. He declined the blood draw and IV access until he gets EMLA which it as ordered and applied. He also requested 30-45 min to letter sit until we try an IV access. He is hemodynamically stable. We are still awaiting for work up. He will be signed out to Dr. Bhakta to follow the blood work results. - Diagnoses Differential Diagnosis/HQI/PQRI: Other - Chest pain, Abdominal pain, diarrhea Provider Diagnoses: Abdominal wall cellulitis Discharge - Discharge Plan Condition: Stable Disposition: OTHER Discharge Disposition Comment: Pt is signed out to Dr. Bhakta Prescriptions: DOXYcycline CAP(*) [DOXYcycline 100MG CAP(*)] 100 mg PO BID #14 cap Levofloxacin TAB* [Levaquin TAB*] 500 mg PO DAILY #7 tab Patient Education Materials: Cellulitis (ED) Referrals: Earle Lutz MD [Primary Care Provider] - 3 Days Additional Instructions: Warm compresses to abdominal wall. Follow up with primary care provider in 3 days. Return to Emergency Department for any new or worsening symptoms. The documentation as recorded by the Moon rodrigues Gabriel accurately reflects the service I personally performed and the decisions made by , Ishaan Mohamud MD.
== END 2017-05-07 01:11 ==
LOC: ED 16:28
DX: L03.311 Cellulitis of abdominal wall (principal); K76.0 Fatty (change of) liver, not elsewhere classified; Q61.9 Cystic kidney disease, unspecified; N40.0 Benign prostatic hyperplasia without lower urinary tract symptoms; Z88.8 Allergy status to other drugs, medicaments and biological substances; Z88.3 Allergy status to other anti-infective agents
CPT/HCPCS: 36415; 71046; 74019; 74177; 80053; 81003; 83630; 83690; 85025; 86140; 87493; 93005; 96361; 96374; 99284; A9270-GY; Q9967